=== PATIENT | female | born 2005 | race Caucasian/White ===

== ENCOUNTER 2024-03-04 10:39 | Emergency (ER) | payer BC, SELFPAY ==
[2024-03-04 10:40] VITALS: BP 121/64; PULSE 50; RESP 14; TEMP 36.6; O2SAT 97; BMI 26.4
--- NOTE | 2024-03-04 11:05 | ED.VIS.GI ---
HPI HPI - GI History of Present Illness Chief Complaint: Abd Pain Informant: patient Narrative Narrative: Patient woke up with abdominal pain that she has never had before about 4 hours ago or so. Centered in the left upper quadrant, radiates into her back on the left low area, and occasionally radiates across her mid abdomen. It feels sharp. It is not colicky. She denies any nausea, vomiting, diarrhea. She had a bowel movement this morning after the pain was present, she states it was soft and normal-seeming, and did not change the pain. She denies any changes in urination no urgency/frequency or hematuria. She denies any fevers or chills. No respiratory symptoms or increase in pain with deep inspiration. She has history of celiac disease, she strictly follows gluten-free diet, and states this is distinctly different pain that she has experienced with gluten in the past. She states a month or so ago she had an EGD and colonoscopy because she was bloating and having diarrhea with meals. She states she was told the results were fairly normal. No prior abdominal surgeries. [facility] Medical History (Updated 03/04/24 @ 15:[address] Pepe Castillo MD) Celiac disease Home Medications ?Medication ?Instructions ?Recorded ?Last Taken ?Type escitalopram oxalate 10 mg tablet 10 mg PO DAILY 03/04/24 Unknown History (Lexapro) tramadol 50 mg tablet 50 mg PO Q6H PRN pain 3 days #12 03/04/24 Unknown Rx tabs Allergy/AdvReac Type Severity Reaction Status Date / Time gluten Allergy Other Verified 03/04/24 10:41 [facility] ED Constitutional Constitutional ED: Denies chills or fever(s) Eyes Eyes: Denies change in vision or diplopia ENT ENT ED: Denies rhinorrhea or sore throat Cardiovascular Cardiovascular: Denies chest pain or palpitations Respiratory/Chest Respiratory/Chest: Denies cough or dyspnea Gastrointestinal Gastrointestinal: Reports abdominal pain; Denies diarrhea, nausea or vomiting Genitourinary Genitourinary ED: Denies dysuria or hematuria Musculoskeletal Musculoskeletal: Reports back pain; Denies neck pain Integumentary Denies abscess or rash Neurologic Neurologic: Denies headache(s), paresthesias or weakness Psychiatric Psychiatric: Reports anxiety; Denies suicidal thoughts EXAM Physical Exam Const Vital Signs: 03/04/24 10:40 03/04/24 12:40 03/04/24 14:00 Temperature 98 F Temperature Source Temporal Pulse Rate 50 L 65 89 Respiratory Rate 14 16 18 Blood Pressure 121/64 H 115/62 119/65 Blood Pressure Mean 83 79 83 Pulse Ox 97 98 100 Oxygen Delivery Method Room Air Room Air Room Air Positive well nourished and well developed Constitutional Narrative: Well-appearing General Appearance ED: well developed and NAD HEENT Reports moist mucous membranes normocephalic and atraumatic Eyes PERRL and EOMs intact bilaterally Neck full ROM and supple Resp normal respiratory effort and clear to auscultation bilaterally Cardio regular rate, regular rhythm and no murmurs GI non-distended GI Narrative: Tender in the left pelvis and the left upper quadrant, no guarding or rebound. No right-sided tenderness or periumbilical tenderness, no hernias. Normal inspection no distention normal bowel sounds present. Auscultation: normoactive bowel sounds Palpation: soft Back/Spine General Back: CVA tenderness left (Mild and subjective normal inspection) and other FROM Extremity normal to inspection General Extremety ED: Negative for edema, pulses abnormal or tenderness General Extremity: Negative for edema or pulses abnormal Neuro oriented x3, CN's II-XII intact bilaterally and no sensory deficits noted Sensorium / Orientation: awake and alert Motor Exam: strength 5/5 throughout Skin no rashes or lesions noted and no wounds MDM MDM MDM Narrative Medical decision making narrative: My differential here including CALLISTHENICS INSTRUCTOR-related ovarian issues, GI etiologies including functional etiologies and inflammatory 1 such as colitis, kidney stone. She is diffusely tender throughout the left side of the abdomen including the left upper quadrant. Given this, and her history of GI-related issues intermittently, started with blood work, urinalysis, which is negative ruling out ectopic , and a CT abdomen/pelvis. I reviewed the images and the report which I agree with, it is showing no acute inflammatory GI issues, but does show a large left ovarian cyst with an ultrasound recommended which I think is indicated emergently to rule out torsion and/or tubo-ovarian abscess given her leukocytosis and left shift or trend to it, there is no bandemia. Ultrasound obtained I reviewed the images and report which I agree with, that shows a hemorrhagic 3.4 cm left ovarian cyst without active bleeding. I discussed with Dr. Rose on for CALLISTHENICS INSTRUCTOR for recommendations given that the patient is already on control pills. She recommends pelvic rest, low impact activities, symptomatic treatment for the next 72 hours follow-up if not improving after that but no urgent CALLISTHENICS INSTRUCTOR consultation necessary unless something changes. Patient does not have evidence of torsion right now, and everything else looks good except for small amount of free fluid in the pelvis, no evidence of active extravasation at this time. Counseled patient on this, spoke with her mom over the phone concerning this and answered her questions as well, mom apparently has a history of this. Patient has Tylenol and ibuprofen at home will prescribe her some tramadol to use as needed and discussed following up with her leather coater at home if she needs to. History & Record Review Discussion w/independent historian: Patient and Family Lab Data Attestation: I reviewed the patient's lab results. Labs: Laboratory Results - last 24 hr 03/04/24 03/04/24 11:13 11:35 WBC 14.5 H RBC 4.94 Hgb 14.0 Hct 41.7 MCV 84.4 MCH 28.3 MCHC 33.6 RDW Std Deviation 36.4 RDW Coeff of Clement 12.1 Plt Count 206 MPV 9.3 Immature Gran % (Auto) 0.500 Neut % (Auto) 83.6 H Lymph % (Auto) 7.9 L Pershing % (Auto) 7.4 Eos % (Auto) 0.3 Baso % (Auto) 0.3 Absolute Neuts (auto) 12.1 H Absolute Lymphs (auto) 1.14 Nucleated RBC % 0 Sodium 137 Potassium 3.6 Chloride 106 Carbon Dioxide 24.0 Anion Gap 7 BUN 11 Creatinine 0.82 Estim Creat Clear Calc 108.84 Est GFR (MDRD) Af Amer 114 Est GFR (MDRD) Non-Af 95 BUN/Creatinine Ratio 13.5 Glucose 107 H Calcium 9.3 Total Bilirubin 0.50 AST 10 L ALT 19 Alkaline Phosphatase 60 Total Protein 7.4 Albumin 4.0 Globulin 3.4 Albumin/Globulin Ratio 1.2 Lipase 22 Serum , Qual NEGATIVE Urine Color Yellow Urine Clarity Sl. Cloudy Urine pH 6.0 Ur Specific [place] 1.015 Urine Protein 15 H Urine Glucose (UA) Normal Urine Ketones 15 H Urine Occult Blood Negative Urine Nitrite Negative Urine Bilirubin Negative Urine Urobilinogen Normal Ur Leukocyte Esterase 25 H Urine RBC 0 SEEN Urine WBC 5-10 SEEN Ur Squamous Epith Cells 5-10 SEEN Urine Bacteria 2+ Urine Mucus 1+ Radiography Diagnostic Testing: Clinical Impression(s) from Imaging Studies Abdomen/Pelvis CT 03/04/24 12:02 IMPRESSION: 3.6 cm x 3.6 cm complex cystic structure in the left ovary. Correlation with ultrasound is recommended. Follicles are seen in the right ovary. Small amount of fluid is seen in the cul-de-sac. Electronically Signed: Ector Antoine MD at 12:16 EDT , Transvaginal US 03/04/24 12:31 IMPRESSION: 3.4 cm x 3.3 cm x 2.9 cm left ovarian hemorrhagic cyst. Electronically Signed: Ector Antoine MD at 13:36 EDT , Management Discussion w/another healthcare provider: Critical Systems Technician (Gynecology Dr. Rose) Discharge Plan Triage Chief Complaint: Abd Pain ED Provider: Pepe Castillo Dx/Rx/DC Orders Clinical Impression: Hemorrhagic cyst of left ovary Instructions: ED Ovarian Cyst Prescriptions: New tramadol 50 mg tablet 50 mg PO Q6H PRN (Reason: pain) 3 Days Qty: 12 0RF No Action escitalopram oxalate [Lexapro] 10 mg tablet 10 mg PO DAILY Primary Care Provider: Care Physician,No Primary Referrals: Doctor,Your [Non-Staff] - (Assembly Line Upholsterer 3-5 days if not improving) Activity Restrictions/Additional Instructions: May take the prescription medication along with Tylenol and ibuprofen if needed in addition. Print Language: Danish Disposition Disposition: Home, Self Care
[2024-03-04] MEDS: Ketorolac 15 MG/ML Vial IV (11:23)
[2024-03-04] MEDS: Mag Hydrox/Al Hydrox/Simeth 30 ML UDC PO (11:23)
[2024-03-04] MEDS: Dicyclomine 10 MG Capsule 20 MG PO (11:23)
[2024-03-04 11:32] LABS: Absolute Lymphocyte Count 1.14 X10^3/uL (0.83-4.51); Absolute Neutrophil Count 12.1 X10^3/uL (2.0-7.7); Basophil# 0.05 X10^3/uL; Basophil% 0.3 % (0-1); Eosinophil# 0.04 X10^3/uL; Eosinophils% 0.3 % (0-5); Hematocrit 41.7 % (37-47); Lymphocyte # 1.14 X10^3/ul (0.83-4.51); Lymphocyte % 7.9 % (19-41); Mean Corp Hgb Conc 33.6 g/dL (32-36); Mean Corpuscular Hgb 28.3 pg (27.0-32.0); Mean Corpuscular Volume 84.4 fL (81-99); Mean Platelet Vol. 9.3 fl (6.2-12.0); Monocyte# 1.07 X10^3/uL; Monocyte% 7.4 % (0-10); NRBC Flagged by Analyzer 0 % (0-5); Neutrophil # 12.13 X10^3/uL (2.7-7.7); Neutrophil % 83.6 % (47-70); Platelet Count 206 K/mm3 (150-450); RBC Distribution Width CV 12.1 % (11.6-14.6); RBC Distribution Width SD 36.4 fl (35.1-43.9); Red Blood Count 4.94 M/mm3 (4.2-5.4); White Blood Count 14.5 K/mm3 (4.4-11.0)
[2024-03-04 11:38] LABS: Red Blood Cells-Urine 0 SEEN /hpf (0-5)
[2024-03-04 11:40] LABS: Internal QC Validated? YES +Cl - CLEAR BKGD; Pregnancy, Serum, hCG Quali. NEGATIVE Negative
[2024-03-04 11:41] LABS: Color, Urine Yellow (Yellow); Glucose, Dipstick Normal (Normal); Ketone-Dipstick 15 mg/dl (Negative); Leukocyte Esterase-Dipstick 25 /ul (Negative); Nitrite-Dipstick Negative (Negative); Occult Blood-Urine Negative /ul (Negative); Protein-Dipstick 15 mg/dl (Negative); Specific Gravity, Urine 1.015 (1.002-1.030); Urine Bilirubin Dipstick Negative (Negative); Urine Clarity Sl. Cloudy (Clear); Urine Urobilinogen Normal (Normal)
[2024-03-04 11:49] LABS: White Blood Cells 5-10 SEEN /hpf (0-5)
[2024-03-04 11:50] LABS: Bacteria 2+ /hpf (None Seen); Mucous, Urine 1+ /hpf (<or=2+); Squamous Epithelial Cells - UA 5-10 SEEN /hpf (5-10)
[2024-03-04 11:57] LABS: ALB/GLOB Ratio 1.2 RATIO (0.9-2.4); AST(SGOT) 10 U/L (15-37); Alanine Aminotransfer ALT/SGPT 19 U/L (13-56); Alkaline Phosphatase 60 U/L (45-117); Anion Gap 7 (5-15); BUN 11 mg/dL (7-18); BUN/Creat Ratio 13.5 RATIO (10-20); Calcium,Total 9.3 mg/dL (8.5-10.1); Chloride 106 mmol/L (98-107); Creatinine, Serum 0.82 mg/dL (0.55-1.02); EST Glomerular Filtration Rate 95 mL/min (>60); Est Glom Filt Rate - Afr Amer 114 mL/min (>60); Estimated Creatinine Clearance 108.84 ml/min; Globulin 3.4 g/dL (2.2-4.2); Glucose 107 mg/dL (74-106); Lipase 22 U/L (13-75); Potassium 3.6 mmol/L (3.5-5.1); Protein, Total 7.4 g/dL (6.4-8.2); Sodium Level 137 mmol/L (136-145)
--- NOTE | 2024-03-04 12:02 | CT_ITS ---
STUDY: CT ABDOMEN AND PELVIS WITH CONTRAST REASON FOR EXAM: Female, 18 years old. left sided abd pain RADIATION DOSAGE (If Supplied By Facility): CTDIvol = ( 7.83 ) mGy, DLP = ( 482.33 ) mGycm TECHNIQUE: Transaxial images were obtained from the dome of the diaphragm to the symphysis pubis without oral contrast. IV 100mL Isovue-[id number] was administered. Sagittal and coronal images were reconstructed. Individualized dose optimization techniques were used for this CT. COMPARISON: None. FINDINGS: The visualized lung bases are unremarkable. The visualized portions of the heart are within normal limits. Normal liver. Normal gallbladder and extrahepatic biliary system. Borderline splenomegaly. Normal pancreas. Normal bilateral adrenal glands. Normal right kidney. Normal left kidney. Normal visualized stomach. Normal small intestine. Normal colon. The appendix is visualized and appears normal. Normal abdominal aorta. Normal inferior vena cava. Normal retroperitoneum. Normal urinary bladder. There is a 3.8 cm by 3.6 on the complex cystic structure in the left adnexa. Small follicles are seen in the right ovary. Correlation with ultrasound recommended. Small amount of fluid is seen in the cul-de-sac. Normal abdominal wall. Normal osseous structures. CT/Abdomen/Pelvis W IV Cont ONLY IMPRESSION: 3.6 cm x 3.6 cm complex cystic structure in the left ovary. Correlation with ultrasound is recommended. Follicles are seen in the right ovary. Small amount of fluid is seen in the cul-de-sac. Electronically Signed: Ector Antoine MD at 12:16 EDT ,
--- NOTE | 2024-03-04 12:31 | US_ITS ---
STUDY: ULTRASOUND OF THE FEMALE PELVIS - COMPLETE REASON FOR EXAM: Female, 18 years old. Left pelvic pain LMP: No recent menstruation. TECHNIQUE: Transvaginal TECHNICAL QUALITY: Adequate. COMPARISON: Comparison is made with prior CT scan performed earlier today. FINDINGS: The uterus is anteverted and is in a midline position. The uterus measures 7.3 cm x 4 cm x 2.5 cm. Normal uterine cervix. The endometrium measures 6.3 mm in thickness, and is hyperechoic. There is no demonstrated endometrial mass. There is no demonstrated myometrial mass. I.U.D. - The patient does not have an I.U.D. The right ovary is visualized. The right ovary measures 3.4 cm x 2.6 cm x 2 cm. There is no right ovarian cyst or ovarian mass. There is no visualized right adnexal mass or complex lesion. There is normal arterial and normal venous vascularity. The left ovary is visualized. The left ovary measures 4 cm x 4.7 cm x 3.7 cm. There is no left ovarian cyst or ovarian mass. There is a 3.4 cm x 3.3 cm x 2.9 cm hemorrhagic cyst. There is normal arterial and normal venous vascularity. There is no fluid in the cul-de-sac. US/Transvaginal Non- IMPRESSION: 3.4 cm x 3.3 cm x 2.9 cm left ovarian hemorrhagic cyst. Electronically Signed: Ector Antoine MD at 13:36 EDT ,
[2024-03-04 12:40] VITALS: BP 115/62; PULSE 65; RESP 16; O2SAT 98
[2024-03-04 14:00] VITALS: BP 119/65; PULSE 89; RESP 18; O2SAT 100
[2024-03-04 15:10] VITALS: BP 119/86; PULSE 63; RESP 16; TEMP 36.9; O2SAT 100
== END 2024-03-04 15:20 | disposition home or self-care (01) ==
PROVIDERS: Emergency Provider Emergency Medicine; Visit Provider Emergency Medicine
DX: N83.202 Unspecified ovarian cyst, left side (principal); R19.7 Diarrhea, unspecified; F41.9 Anxiety disorder, unspecified; Z79.899 Other long term (current) drug therapy
CPT/HCPCS: 74177; 76830; 80053; 81001; 83690; 84703; 85025; 96374; 99284; Q9967; A4216